=== PATIENT | female | born 1990 | race African-American/Black ===

== ENCOUNTER 2017-09-18 23:35 | Emergency (ER) | payer MEDICAID | END 2017-09-19 00:30 | disposition left against medical advice (07) | LOC: ER 23:35 | DX: Z53.21 Procedure and treatment not carried out due to patient leaving prior to being seen by health care provider (principal) ==

== ENCOUNTER 2017-11-11 00:41 | Emergency (ER) | payer MEDICAID ==
[~2017-11-11] VITALS: Ht 154.9 cm; Wt 109.0 kg
[2017-11-11] MEDS ORDERED: ALBUTEROL (0.083%) 2.5MG/3ML NEB HHN STA (08:04)
[2017-11-11 08:47] VITALS: BP 102/61
== END 2017-11-11 10:35 | disposition home or self-care (01) ==
LOC: ER 00:41
DX: B34.9 Viral infection, unspecified (principal)
CPT/HCPCS: 71045; 81025; 94640; 99283; J7611

== ENCOUNTER 2018-09-15 02:38 | Emergency (ER) | payer MEDICAID ==
[~2018-09-15] VITALS: Ht 154.9 cm; Wt 118.0 kg
[2018-09-15] MEDS ORDERED: SODIUM CHLORIDE 0.9% 1,000 ML IV ONE (03:23)
[2018-09-15] MEDS ORDERED: ONDANSETRON HCL 4MG/2ML INJ IV STA (03:23)
[2018-09-15] MEDS ORDERED: MORPHINE SULFATE 4 MG/ML CPJ (NOT FOR IM USE) IV STA (03:23)
[2018-09-15] MEDS ORDERED: FAMOTIDINE 20MG/2ML VIAL IV STA (03:23)
[2018-09-15] MEDS ORDERED: KETOROLAC 30MG/ML VIAL IV STA (03:23)
[2018-09-15] MEDS ORDERED: FAMOTIDINE 20MG TABLET PO ONE (04:00)
[2018-09-15] MEDS ORDERED: ONDANSETRON 4MG ODT PO ONE (04:00)
[2018-09-15 04:19] LABS: BASOPHILS % 0.4 % (0.0-2.0); EOSINOPHILS % 1.9 % (0.0-5.0); HEMATOCRIT. 38.9 % (36.0-48.0); HEMOGLOBIN. 12.6 g/dL (12.0-16.0); LYMPHOCYTES % 54.4 % (20.0-50.0); MEAN CORPUSCULAR VOLUME 83.1 fL (81.0-99.0); MEAN PLATELET VOLUME 8.2 fl (7.4-10.4); MONOCYTES % 6.3 % (2.0-8.0); PLATELET 272 x1000/uL (130-400); RED BLOOD CELL COUNT 4.68 mill/uL (4.2-5.4); RED CELL DISTRIBUTION WIDTH 14.8 % (11.6-14.6)
[2018-09-15 04:26] LABS: CHLORIDE 105 mEq/L (98-107)
[2018-09-15 04:27] LABS: PROTHROMBIN TIME 10.5 sec (9.1-11.1)
[2018-09-15 04:33] LABS: ETHANOL BLOOD < 10 mg/dL
[2018-09-15 05:08] LABS: HCG SCREEN NEGATIVE
[2018-09-15 05:16] LABS: CLARITY URINE CLEAR (CLEAR); COLOR URINE YELLOW (YELLOW); KETONES URINE NEGATIVE (NEGATIVE); LEUKOCYTE ESTERASE URINE NEGATIVE (NEGATIVE); NITRITE URINE NEGATIVE (NEGATIVE); OCCULT BLOOD URINE NEGATIVE (NEGATIVE); PH URINE 5.5 (4.5-8.0); PROTEIN URINE NEGATIVE (NEGATIVE); UROBILINOGEN URINE 0.2 E.U./dL (0.2-1.0)
[2018-09-15 05:40] VITALS: BP 99/48
== END 2018-09-15 06:22 | disposition home or self-care (01) ==
LOC: ER 02:38
DX: K52.9 Noninfective gastroenteritis and colitis, unspecified (principal); R10.9 Unspecified abdominal pain; R11.2 Nausea with vomiting, unspecified
CPT/HCPCS: 36415; 80053; 81003; 81025; 83690; 84703; 85025; 85610; 99283; G0482; J7030; Q0162

== ENCOUNTER 2018-10-08 21:54 | Emergency (ER) | payer MEDICAID ==
[~2018-10-08] VITALS: Ht 154.9 cm; Wt 109.0 kg
[2018-10-08 22:30] VITALS: BP 124/67
== END 2018-10-09 00:57 | disposition home or self-care (01) ==
LOC: ER 22:44
DX: H10.89 Other conjunctivitis (principal)
CPT/HCPCS: 99283

== ENCOUNTER 2019-01-27 08:55 | Emergency (ER) | payer MEDICAID, OTHER ==
[~2019-01-27] VITALS: Ht 154.9 cm; Wt 128.5 kg
[2019-01-27] MEDS ORDERED: ONDANSETRON 4MG ODT PO ONE (10:30)
[2019-01-27 10:44] LABS: CLARITY URINE CLEAR (CLEAR); COLOR URINE YELLOW (YELLOW); KETONES URINE NEGATIVE (NEGATIVE); LEUKOCYTE ESTERASE URINE TRACE (NEGATIVE); NITRITE URINE NEGATIVE (NEGATIVE); OCCULT BLOOD URINE NEGATIVE (NEGATIVE); PH URINE 6.5 (4.5-8.0); PROTEIN URINE NEGATIVE (NEGATIVE); SPECIFIC GRAVITY URINE 1.019 (1.005-1.030); UROBILINOGEN URINE 0.2 E.U./dL (0.2-1.0)
[2019-01-27 10:46] LABS: HEMATOCRIT. 39.1 % (36.0-48.0); HEMOGLOBIN. 12.7 g/dL (12.0-16.0); MEAN CORPUSCULAR HEMOGLOBIN 27.1 pg (28.0-32.0); MEAN CORPUSCULAR VOLUME 83.6 fL (81.0-99.0); PLATELET 316 x1000/uL (130-400); RED BLOOD CELL COUNT 4.68 mill/uL (4.2-5.4)
[2019-01-27 10:51] LABS: CHLORIDE 106 mEq/L (98-107)
[2019-01-27 10:54] LABS: PROTHROMBIN TIME 10.6 sec (9.6-11.0)
[2019-01-27 11:00] LABS: HCG SCREEN NEGATIVE
[2019-01-27 11:31] LABS: PLATELET ESTIMATE NORMAL
[2019-01-27 13:36] VITALS: BP 107/67
== END 2019-01-27 13:42 | disposition home or self-care (01) ==
LOC: ER 08:55
DX: K29.70 Gastritis, unspecified, without bleeding (principal); E11.9 Type 2 diabetes mellitus without complications
CPT/HCPCS: 80053; 81003; 84703; 85025; 85610; 99283; Q0162

== ENCOUNTER 2020-01-28 21:18 | Emergency (ER) | payer SELFPAY ==
[~2020-01-28] VITALS: Ht 154.9 cm; Wt 129.1 kg
[2020-01-28] MEDS ORDERED: IBUPROFEN 600MG TABLET PO ONE (22:30)
[2020-01-29 00:17] VITALS: BP 113/59
== END 2020-01-29 00:19 | disposition home or self-care (01) ==
LOC: ER 21:18
DX: H00.016 Hordeolum externum left eye, unspecified eyelid (principal); Z98.890 Other specified postprocedural states
CPT/HCPCS: 99283